=== PATIENT | female | born 1995 | race Caucasian/White ===

== ENCOUNTER → 2016-10-01 | Outpatient (CLI) | payer MEDICAID ==
[~2016-10-01] MED LIST: PREN1TAB63
== END ==
LOC: HPND 14:18
PROVIDERS: ATTEND Family Medicine
DX: Z34.90 Encounter for supervision of normal pregnancy, unspecified, unspecified trimester (principal)
CPT/HCPCS: 76805

== ENCOUNTER → 2016-11-05 | Outpatient (CLI) | payer MEDICAID | LOC: HPND 14:38 | PROVIDERS: ATTEND Family Medicine | DX: O26.842 Uterine size-date discrepancy, second trimester (principal); Z3A.20 20 weeks gestation of pregnancy | CPT/HCPCS: 76816 ==

== ENCOUNTER → 2017-01-14 | Outpatient (CLI) | payer MEDICAID ==
[~2017-01-14] MED LIST changes: +AZIT500T2 PO; +CEPH-460 PO; +MACR100C2 PO
== END ==
LOC: HPND 13:35
PROVIDERS: ATTEND Family Medicine
DX: Z36 Encounter for antenatal screening of mother (principal)
CPT/HCPCS: 76816

== ENCOUNTER 2017-03-11 08:01 | Emergency (ER) | payer MEDICAID ==
[~2017-03-11 08:01] MED LIST changes: -AZIT500T2 PO; -CEPH-460 PO; -MACR100C2 PO
--- NOTE | 2017-03-11 08:52 | PD ---
HPI Travel History International Travel<30 Days: No Contact w/Intl Traveler<30Days: No Known Affected Area: No History of Present Illness HPI 21 yr old at 38 weeks presents with contractions. Accompanied by mom. Reports that her contractions started about 7am this morning. She states that they have been regular and 12-15 min apart. She states that she had intercourse last night. She states that she has normal thin, white vaginal discharge. She denies foul-smelling odor. She smokes 6-7 cigarettes/day. She denies leakage of fluid, vaginal bleeding, dysuria, N/V, SOB, and CP. During her stay in the ED , she states that her contractions improved after she calmed down. [place] [facility] [place] [facility] [place]. History Past Medical History Narrative Medical Scoliosis Anxiety and Depression, currently not on meds, took Zoloft in the past Obstetric History Obstetric History Last was induced VD due to due dates Hx of chlamydia, treated with Azithromycin, but no BRANDY Past Surgical History Surgical History: No Previous Surgery Family History Family History: Negative Social History Alcohol Use: No Tobacco Use: Yes (smokes 6-7 cigarrettes per day) Substance Abuse: No Allergies-Medications (Allergen,Severity, Reaction): Coded Allergies: No Known Allergies (Unverified , 03/05/17) Home Meds Reported Medications Multivit-Min W/Fe-FA ( Vitamins 0.8 mg) 1 Tab Tab 08/18/16 Review of Systems Except as stated in HPI: all other systems reviewed are Neg Physical Exam Narrative GENERAL: Well-nourished, well-developed patient. SKIN: Warm and dry. HEAD: Normocephalic and atraumatic. EYES: No scleral icterus. No injection or drainage. ENT: No nasal drainage noted. Mucous membranes pink. Airway patent. NECK: Supple, trachea midline. No JVD. CARDIOVASCULAR: Regular rate and rhythm without murmurs, gallops, or rubs. RESPIRATORY: Breath sounds equal bilaterally. No accessory muscle use. ABDOMEN/GI: Abdomen soft, non-tender, bowel sounds present, no rebound, no guarding DIGITAL EXAM: 3cm, thick, posterior and high FHT's: Category: 1 Baseline: 130s Reactive: yes Variability: moderate Decels: no EXTREMITIES: No cyanosis or edema. BACK: Nontender without obvious deformity. NEUROLOGICAL: Awake and alert. Motor and sensory grossly within normal limits. Data Data Vital Signs Reviewed: Yes Orders Orders Vital Signs (Adult) .ON ADMISSION (03/11/17 08:49) ^ Labor Status (03/11/17 08:49) ^ Hydration (03/11/17 08:49) Group B Strep: Negative MDM Narrative Course / MDM 21 yr old at 38 weeks presents with false labor 1. IUP category 1, reassuring 2. False labor -Encourage hydration frequently -Tylenol and heating pad for pain -Return to the ED if contractions are 5 min apart for 1 hr or ROM -Continue care with Dr. Barrientos Diagnosis Diagnosis: Primary Impression: False labor at or after 37 completed weeks of gestation Disposition: 01 DISCHARGE HOME Condition: Good Patient Instructions: Early Labor Signs (ED) Lottie Rodriguez MD R1 Mar 11, 2017 08:52
[2017-03-13] MEDS ORDERED: SENN1TAB PO ×2 (09:28)
[2017-03-13] MEDS ORDERED: IBUP-232 PO ×2 (09:28)
[2017-03-15] MEDS ORDERED: BREAST PUMP1 MI1 ×2 (11:15)
== END 2017-03-11 09:20 | disposition home or self-care (01) ==
LOC: HOBED 08:01
DX: O47.1 False labor at or after 37 completed weeks of gestation (principal); Z3A.38 38 weeks gestation of pregnancy
CPT/HCPCS: 59025

== ENCOUNTER 2017-03-11 18:22 | Inpatient (IN) | payer MEDICAID ==
[2017-03-11] VITALS (11 sets, daily range): BP systolic 116–128; BP diastolic 60–61; PULSE 81–119; RESP 20–22; TEMP 98.5–98.7
[~2017-03-11] VITALS: Ht 165.1 cm; Wt 73.0 kg
[~2017-03-11 18:22] MED LIST changes: +DIPHTH/TETANUS/ACEL PERTUSSIS (BOOSTER) 0.5 ML VIAL/PFS IM ONE; +MEASLES, MUMPS, RUBELLA VACCINE 0.5 ML VIAL SQ ONE
--- NOTE | 2017-03-11 19:24 | PD ---
HPI Travel History International Travel<30 Days: No Contact w/Intl Traveler<30Days: No Known Affected Area: No History of Present Illness HPI 21 yr old at 38 weeks presents with contractions. Patient was here early this morning. Reports that she was having contractions every 10-15 min. Cervix was 3-4cm, thick, high and posterior. Patient was discharged from OB triage for false labor. She went to her appointment this afternoon at the [facility] – [place]. She was found to be dilated to 5cm at the clinic there and thus sent over to OB triage for cervical change. Patient reports that contractions are close to 10min apart and are more intense. She denies leakage of fluids, vaginal bleeding , vaginal discharge, N/V, CP, and SOB. History Past Medical History Narrative Medical Scoliosis Anxiety and Depression, currently not on meds, took Zoloft in the past Obstetric History Obstetric History Last was induced VD due to due dates Hx of chlamydia, treated with Azithromycin, but no BRANDY Past Surgical History Surgical History: No Previous Surgery Family History Family History: Negative Social History Alcohol Use: No Tobacco Use: Yes (smokes 6-7 cigarrettes per day ) Substance Abuse: No Allergies-Medications (Allergen,Severity, Reaction): Coded Allergies: No Known Allergies (Unverified , 03/05/17) Home Meds Reported Medications Multivit-Min W/Fe-FA ( Vitamins 0.8 mg) 1 Tab Tab 08/18/16 Review of Systems Except as stated in HPI: all other systems reviewed are Neg Physical Exam Narrative GENERAL: Well-nourished, well-developed patient. SKIN: Warm and dry. HEAD: Normocephalic and atraumatic. EYES: No scleral icterus. No injection or drainage. ENT: No nasal drainage noted. Mucous membranes pink. Airway patent. NECK: Supple, trachea midline. No JVD. CARDIOVASCULAR: Regular rate and rhythm without murmurs, gallops, or rubs. RESPIRATORY: Breath sounds equal bilaterally. No accessory muscle use. ABDOMEN/GI: Abdomen soft, non-tender, bowel sounds present, no rebound, no guarding GENITOURINARY: Cervix: posterior Dilatation: 4-5 Effacement: 50% Station: -3 Presentation: vertex Membranes: intact Uterine Contractions: FHT's: Category: 1 Baseline: 150s Reactive: yes Variability: moderate Decels: no EXTREMITIES: No cyanosis or edema. BACK: Nontender without obvious deformity. NEUROLOGICAL: Awake and alert. Motor and sensory grossly within normal limits. Data Data Vital Signs Reviewed: Yes Orders Orders Vital Signs (Adult) .ON ADMISSION (03/11/17 19:23) ^ Labor Status (03/11/17 19:23) ^ Hydration (03/11/17 19:23) Gc And Chlamydia Pcr (03/11/17 19:23) Group B Strep: Negative MDM Narrative Course / MDM 21 yr old at 38 weeks presents with contractions and possible labor 1. IUP -category 1, reassuring 2. Possible labor -Cervix dilated to 4-5 cm, 50% effacement, station -3 -Will monitor in ED for cervical change 3. GBS negative 4. Hx of chlamydia, no BRANDY -GC & chlamydia PCR pending Lottie Rodriguez MD R1 Mar 11, 2017 19:24
--- NOTE | 2017-03-11 21:00 | PD ---
HPI Travel History International Travel<30 Days: No Contact w/Intl Traveler<30Days: No Known Affected Area: No History of Present Illness HPI Please see note from Dr. Rodriguez for initial H&P. On reassessment, patient reports having more intense contractions and in more pain. Allergies-Medications (Allergen,Severity, Reaction): Coded Allergies: No Known Allergies (Unverified , 03/05/17) Home Meds Reported Medications Multivit-Min W/Fe-FA ( Vitamins 0.8 mg) 1 Tab Tab 08/18/16 Physical Exam Narrative GENITOURINARY: External Genitalia: intact and normal in appearance Cervix: soft, posterior Dilatation: 5 Effacement: 60 Station: -2 Presentation: [-] Membranes: intact Uterine Contractions: q2-3min FHT's: Category:1 Baseline: 140 Reactive: accels present Variability: moderate Decels: none Data Data Vital Signs Reviewed: Yes Orders Orders Vital Signs (Adult) .ON ADMISSION (03/11/17 19:23) ^ Labor Status (03/11/17 19:23) ^ Hydration (03/11/17 19:23) Gc And Chlamydia Pcr (03/11/17 19:23) Group B Strep: Negative Labs Laboratory Tests Test 03/11/17 19:40 MDM Medical Record Reviewed: Yes Plan 21 yr old at 38/0 in active labor. 1. IUP * Cat 1 tracing reassuring. Good contraction pattern q2-3mins. No decels * Admit to L&D for routine labor care * Vertex position based on US from 01/14/2017 2. GBS negative: No abx needed 3. +Chlamydia on labs. No test of cure available. Pt denies hx of chlamydia. * test of cure obtained today, pending dw Dr. Brayan Cabrera,Delia Groves MD, R3 Mar 11, 2017 21:00
[2017-03-11] MEDS ORDERED: LACTATED RINGER'S 1000 ML INJ 1,000 ML IV SCH (21:05)
[2017-03-11] MEDS ORDERED: LACTATED RINGER'S 1000 ML INJ 1,000 ML IV PRN (21:05)
[2017-03-11] MEDS ORDERED: LIDOCAINE HCL 1% 50 ML VIAL I-DERMAL PRN (21:15)
[2017-03-11] MEDS ORDERED: OXYTOCIN 30 UNITS-500ML PREMIX 500 ML IV ONE (21:15)
[2017-03-11] MEDS ORDERED: CITRIC ACID-SODIUM CITRATE LIQ 30 ML UDC PO SCH (21:15)
[2017-03-11] MEDS ORDERED: MINERAL OIL 10 ML VIAL TOPICAL PRN (21:15)
[2017-03-11] MEDS ORDERED: SODIUM CHLORID 0.9% 500 ML INJ 500 ML IV PRN (21:15)
[2017-03-11] MEDS ORDERED: LIDOCAINE HCL 1% 50 ML VIAL INFIL PRN (21:15)
--- NOTE | 2017-03-11 21:18 | HHI.HP ---
History & Physical H&P HPI Travel History International Travel<30 Days: No Contact w/Intl Traveler<30Days: No Known Affected Area: No History of Present Illness HPI 21 yr old at 38 weeks presents with contractions. Patient was here early this morning. Reports that she was having contractions every 10-15 min. Cervix was 3-4cm, thick, high and posterior. Patient was discharged from OB triage for false labor. She went to her appointment this afternoon at the [facility]. She was found to be dilated to 5cm at the clinic there and thus sent over to OB triage for cervical change. Patient reports that contractions are close to 10min apart and are more intense. She denies leakage of fluids, vaginal bleeding , vaginal discharge, N/V, CP, and SOB. History Past Medical History Narrative Medical Scoliosis Anxiety and Depression, currently not on meds, took Zoloft in the past Obstetric History Obstetric History Last was induced VD due to due dates Hx of chlamydia, treated with Azithromycin, but no BRANDY Past Surgical History Surgical History: No Previous Surgery Family History Family History: Negative Social History Alcohol Use: No Tobacco Use: Yes (smokes 6-7 cigarrettes per day ) Substance Abuse: No Allergies-Medications (Allergen,Severity, Reaction): Coded Allergies: No Known Allergies (Unverified , 03/05/17) Home Meds Reported Medications Multivit-Min W/Fe-FA ( Vitamins 0.8 mg) 1 Tab Tab 08/18/16 Review of Systems Except as stated in HPI: all other systems reviewed are Neg Physical Exam Narrative GENERAL: Well-nourished, well-developed patient. SKIN: Warm and dry. HEAD: Normocephalic and atraumatic. EYES: No scleral icterus. No injection or drainage. ENT: No nasal drainage noted. Mucous membranes pink. Airway patent. NECK: Supple, trachea midline. No JVD. CARDIOVASCULAR: Regular rate and rhythm without murmurs, gallops, or rubs. RESPIRATORY: Breath sounds equal bilaterally. No accessory muscle use. ABDOMEN/GI: Abdomen soft, non-tender, bowel sounds present, no rebound, no guarding GENITOURINARY: Cervix: posterior Dilatation: 4-5 Effacement: 50% Station: -3 Presentation: vertex Membranes: intact Uterine Contractions: FHT's: Category: 1 Baseline: 150s Reactive: yes Variability: moderate Decels: no EXTREMITIES: No cyanosis or edema. BACK: Nontender without obvious deformity. NEUROLOGICAL: Awake and alert. Motor and sensory grossly within normal limits. Data Data Vital Signs Reviewed: Yes Orders Orders Vital Signs (Adult) .ON ADMISSION (03/11/17 19:23) ^ Labor Status (03/11/17 19:23) ^ Hydration (03/11/17 19:23) Gc And Chlamydia Pcr (03/11/17 19:23) Group B Strep: Negative MDM Narrative Course / MDM 21 yr old at 38 weeks presents with contractions and possible labor 1. IUP -category 1, reassuring 2. Possible labor -Cervix dilated to 4-5 cm, 50% effacement, station -3 -Will monitor in ED for cervical change REASSESSMENT ON 03/11/17 AT 2044 patient reports having more intense contractions and in more pain. PHYSICAL EXAM GENITOURINARY: External Genitalia: intact and normal in appearance Cervix: soft, posterior Dilatation: 5 Effacement: 60 Station: -2 Presentation: [-] Membranes: intact Uterine Contractions: q2-3min FHT's: Category:1 Baseline: 140 Reactive: accels present Variability: moderate Decels: none Plan 21 yr old at 38/0 in active labo 1. IUP * Cat 1 tracing reassuring. Good contraction pattern q2-3mins. No decels * Admit to L&D for routine labor care * Vertex position based on US from 01/14/2017 2. GBS negative: No abx needed 3. +Chlamydia on labs. No test of cure available. Pt denies hx of chlamydia. * test of cure obtained today, pending dw Dr. Brayan Cabrera,Delia Groves MD, R3 Mar 11, 2017 21:18
[2017-03-11] MEDS ORDERED: SODIUM CHLOR 0.9% 1000 ML INJ 1,000 ML IV PRN (21:25)
[2017-03-11 21:35] LABS: BLOOD, URINE NEG (NEG); COMMENT (UR) CULT NOT INDICATED; CULTURE IF INDICATED CULT NOT INDICATED; GLUCOSE,URINE NEG (NEG); KETONE, URINE 10 mg/dL (NEG); MUCUS URINE FEW /lpf (OCC); NITRITE,URINE NEG (NEG); PH, URINE 6.5 (5.0-8.5); SQUAMOUS EPITHELIAL CELL URINE 1 /hpf (0-5); URINE COLOR LIGHT-YELLOW (YELLW/STRAW)
[2017-03-11] MEDS ORDERED: ACETAMINOPHEN 325 MG TAB PO ONE (21:45)
[2017-03-11 21:56] LABS: AUTOMATED NEUTROPHIL # 10.1 TH/MM3 (1.8-7.7); BASOPHIL % 0.2 % (0.0-2.0); EOSINOPHIL # 0.3 TH/MM3 (0-0.4); HEMATOCRIT 37.1 % (35.0-46.0); HEMO FLAGS DIFF FINAL; LYMPH % 23.7 % (9.0-44.0); LYMPHOCYTE # 3.5 TH/MM3 (1.0-4.8); MEAN CELL VOLUME 90.8 FL (80.0-100.0); MEAN CORPUSCULAR HEMOGLOBIN 31.1 PG (27.0-34.0); MEAN CORPUSCULAR HGB CONC 34.2 % (32.0-36.0); MONO % 5.7 % (0.0-8.0); NEUT % 68.4 % (16.0-70.0); PLATELET COUNT 278 TH/MM3 (150-450); RED BLOOD COUNT 4.08 MIL/MM3 (4.00-5.30); RED CELL DISTRIBUTION WIDTH 13.3 % (11.6-17.2); WHITE BLOOD COUNT 14.8 TH/MM3 (4.0-11.0)
--- NOTE | 2017-03-11 22:52 | PD.LABORPN ---
Subjective Subjective This is a 21-year-old at 38 and 0 weeks' gestational age she is currently in labor. Reports feeling adequate contractions that are quite painful but tolerable. She is getting some relief from her pain medications. She just had a rupture of her membranes without assistance. She is feeling some good movement. She is feeling some increased pelvic pressure. She is excited to see the baby and is hoping for sooner rather than later. Objective Vital Signs Vital Signs Date Time Temp Pulse Resp B/P (MAP) Pulse Ox O2 Delivery O2 Flow Rate FiO2 03/11/17 21:40 88 03/11/17 21:15 98.7 20 03/11/17 21:12 88 116/60 (78) Objective Pelvic Exam: Cervix: soft Dilatation: 7 Effacement:70 Station: -2 Presentation: Vertex Membranes: Ruptured Uterine Contractions: 3-4 minutes FHT's: Category: 1 Baseline: 130 Reactive: Up to 160 Variability: Moderate Decels: none Weeks Gestation: 38 Gest Age Assessed Date: Mar 11, 2017 Gest Age Assessed Time: 22:45 Pt started active labor?: Yes Active labor start date: Mar 11, 2017 Active labor start time: 17:00 Medical induction of labor?: No Artificial rupture of membrane: No Assessment/Plan Problem List: (1) 38 weeks gestation of ICD Codes: Z3A.38 - 38 weeks gestation of (2) Uterine contractions during ICD Codes: O62.2 - Other uterine inertia Assessment and Plan 21 yr old at 38/0 in active labor 1. IUP * Cat 1 tracing reassuring. Good contraction pattern q2-3mins. No decels * Admit to L&D for routine labor care * Continue routine expectant management 2. GBS negative: No abx needed 3. +Chlamydia on labs. No test of cure available. Pt denies hx of chlamydia. * test of cure obtained today, pending wdw Bladimir Benavidez MD, R3 Mar 11, 2017 22:52
[2017-03-11 23:46] LABS: CHLAMYDIA PCR NOT DETECTED (NOT DETECT); NEISSERIA PCR NOT DETECTED (NOT DETECT)
--- NOTE | 2017-03-11 23:58 | PD.OB.DELI ---
Weeks gestation: 38 Gest age assessed date: Mar 11, 2017 Gest age assessed time: 22:45 Pt started active labor?: Yes Active labor start date: Mar 11, 2017 Active labor start time: 17:00 Medical induction of labor?: No Artificial rupture of membrane: No Anesthesia: None Episiotomy: None Vaginal Delivery: Normal Presentation: Occiput anterior Nuchal Cord: None Delayed cord clamping (45 sec): Yes : Female Delivery date: Mar 11, 2017 Delivery time: 11:31 One Minute : 8 Five Minute : 9 Weight: 3160 Placenta: Spontaneous delivery, Intact, 3 vessel cord Additional Information Baby was a rapid vaginal delivery. No tears noted following delivery. Bladimir Barrientos MD, R3 Mar 11, 2017 23:58
[2017-03-12] MEDS ORDERED: ZOLPIDEM TARTRATE 5 MG TAB PO PRN
[2017-03-12] MEDS ORDERED: ONDANSETRON ODT 4 MG TAB PO PRN
[2017-03-12] MEDS ORDERED: IBUPROFEN 600 MG TAB PO PRN
[2017-03-12] MEDS ORDERED: OXYTOCIN 30 UNITS-500ML PREMIX 500 ML IV SCH
[2017-03-12] MEDS ORDERED: WITCH HAZEL 50%/GLYCERIN 12.5% 40 PAD JAR TOPICAL PRN
[2017-03-12] MEDS ORDERED: DOCUSATE SODIUM 50 MG/SENNA 8.6 MG TAB PO PRN
[2017-03-12] MEDS ORDERED: ALUMINUM/MAGNESIUM/SIMETH 30 ML CUP PO PRN
[2017-03-12] MEDS ORDERED: ACETAMINOPHEN 325 MG TAB PO PRN
[2017-03-12] MEDS ORDERED: SODIUM CHLORIDE 0.9% FLUSH 10 ML FLUSH IV FLUSH PRN
[2017-03-12] MEDS ORDERED: BENZOCAINE 20% TOPICAL SPRAY 60 ML CAN TOPICAL PRN
[2017-03-12 00:22] VITALS: BP 111/64; PULSE 71
[2017-03-12 00:30] VITALS: RESP 18
[2017-03-12 05:59] LABS: AUTOMATED NEUTROPHIL # 15.3 TH/MM3 (1.8-7.7); BASOPHIL % 0.2 % (0.0-2.0); EOSINOPHIL # 0.1 TH/MM3 (0-0.4); EOSINOPHIL % 0.3 % (0.0-4.0); HEMATOCRIT 34.2 % (35.0-46.0); HEMO FLAGS DIFF FINAL; LYMPH % 13.6 % (9.0-44.0); LYMPHOCYTE # 2.6 TH/MM3 (1.0-4.8); MEAN CELL VOLUME 90.9 FL (80.0-100.0); MEAN CORPUSCULAR HEMOGLOBIN 31.5 PG (27.0-34.0); MEAN CORPUSCULAR HGB CONC 34.6 % (32.0-36.0); MONO % 5.1 % (0.0-8.0); NEUT % 80.8 % (16.0-70.0); PLATELET COUNT 255 TH/MM3 (150-450); RED BLOOD COUNT 3.76 MIL/MM3 (4.00-5.30); RED CELL DISTRIBUTION WIDTH 13.2 % (11.6-17.2); WHITE BLOOD COUNT 18.9 TH/MM3 (4.0-11.0)
--- NOTE | 2017-03-12 07:47 | HHI.OB ---
Subjective Post Day: 1 Remarks day # 1. AFVSS overnight. Pain controlled. Decreased lochia. Denies dysuria. No breast tenderness. She is feeding the baby via breast. Appetite good. No nausea or vomiting. Positive flatus. Negative bowel movement. Ambulating well. Denies calf pain, shortness of breath, or cough. Otherwise, she is doing well this morning and has no other complaints. Objective Vitals/I&O Vital Signs Date Time Temp Pulse Resp B/P (MAP) Pulse Ox O2 Delivery O2 Flow Rate FiO2 03/12/17 00:30 18 03/12/17 00:22 71 03/12/17 00:22 111/64 (80) 03/11/17 23:57 83 03/11/17 23:46 88 128/61 (83) 03/11/17 23:45 98.5 20 03/11/17 23:30 119 03/11/17 23:10 81 03/11/17 22:55 85 03/11/17 22:45 22 03/11/17 22:20 97 03/11/17 21:40 88 03/11/17 21:15 98.7 20 03/11/17 21:12 88 116/60 (78) Objective Remarks GENERAL: Well-nourished, well-developed patient. CARDIOVASCULAR: Regular rate and rhythm without murmurs, gallops, or rubs. RESPIRATORY: Breath sounds equal bilaterally. No accessory muscle use. ABDOMEN/GI: Abdomen soft, non-tender. Fundus: Firm, non-tender at umbilicus. GENITOURINARY: Light to moderate bleeding. EXTREMITIES: No cyanosis or edema, non-tender, without signs of DVT. Medications and IVs Current Medications Medications (Trade) Dose Ordered Sig/Amrik Route Start Time Stop Time Status Last Admin Lactated Ringer's 1,000 ml @ 125 mls/hr Q8H IV 03/11/17 21:05 03/11/17 22:30 Lactated Ringer's 1,000 ml @ 3,000 mls/hr Q20M PRN IV 03/11/17 21:05 Sodium Chloride 500 ml @ 1,000 mls/hr ONCE PRN IV 03/11/17 21:15 03/12/17 21:14 Sodium Chloride 1,000 ml @ 100 mls/hr Q10H PRN IV 03/11/17 21:25 (Xylocaine 1% Inj (50 ml)) 0.1 ml UNSCH X1 PRN I-DERMAL 03/11/17 21:15 03/14/17 21:14 (Bicitra Liq) 30 ml ATTENDING AMBULATORY CARE PO 03/11/17 21:15 03/15/17 21:14 (fentaNYL INJ) 50 mcg Q1H PRN IV PUSH 03/11/17 21:15 (fentaNYL INJ) 100 mcg Q1H PRN IV PUSH 03/11/17 21:15 03/11/17 22:30 (Xylocaine 1% Inj (50 ml)) 10 ml UNSCH X1 PRN INFIL 03/11/17 21:15 03/13/17 21:14 (Muri-Lube Oil) 10 ml UNSCH PRN TOPICAL 03/11/17 21:15 (NS Flush) 2 ml BID IV FLUSH 03/12/17 09:00 (NS Flush) 2 ml UNSCH PRN IV FLUSH 03/12/17 00:00 (Tylenol) 650 mg Q4H PRN PO 03/12/17 00:00 (Motrin) 600 mg Q6H PRN PO 03/12/17 00:00 03/12/17 02:43 (Americaine 20% Top Spr) 1 spray Q4H PRN TOPICAL 03/12/17 00:00 (Tucks Pads) 1 applic QID PRN TOPICAL 03/12/17 00:00 (Sudha-Colace) 2 tab Q12H PRN PO 03/12/17 00:00 (Ambien) 5 mg HS PRN PO 03/12/17 00:00 (Mag-Al Plus Susp Liq) 15 ml Q8H PRN PO 03/12/17 00:00 (Zofran Odt) 4 mg Q6H PRN PO 03/12/17 00:00 (Flu (Quadrivalent) Vaccine Inj) 0.5 ml ONCE ONCE IM 03/12/17 09:00 03/12/17 09:01 Assessment/Plan Problem List: (1) 38 weeks gestation of ICD Codes: Z3A.38 - 38 weeks gestation of (2) Uterine contractions during ICD Codes: O62.2 - Other uterine inertia (3) care following vaginal delivery ICD Codes: Z39.2 - Encounter for routine follow-up Assessment and Plan 21 y/o female who is PPD# 1 s/p . -Continue routine care. -Percocet and Motrin PRN pain. -Encouraged OOB. Advised pelvic rest for 6 wks. -Will need a f/u appt. within 6 wks. -Re: ctrl, she is undecided at this time. -D/c in 1-2 more days. wdw OB attending Discharge Planning Plan for discharge tomorrow Bladimir Barrientos MD, R3 Mar 12, 2017 07:47
[2017-03-12 08:30] VITALS: BP 113/67; PULSE 79; RESP 16; TEMP 98
[2017-03-12] MEDS ORDERED: SODIUM CHLORIDE 0.9% FLUSH 10 ML FLUSH IV FLUSH SCH (09:00)
[2017-03-12] MEDS ORDERED: INFLUENZA VIRUS VACCINE (QUADRIVALENT) 0.5 ML SYR IM ONE (09:00)
[2017-03-12 20:00] VITALS: BP 106/64; PULSE 67; RESP 16; TEMP 97.8
[2017-03-13 07:40] VITALS: BP 107/70; PULSE 66; RESP 18; TEMP 97.7
--- NOTE | 2017-03-13 09:27 | HHI.OB ---
Subjective Post Day: 2 Remarks day # 2. AFVSS overnight. Pain controlled. Decreased lochia. Denies dysuria. She is feeding the baby via breast. Appetite good. No nausea or vomiting. Positive flatus. Positive bowel movement. Ambulating well. Denies calf pain, shortness of breath, or cough. Otherwise, she is doing well this morning and has no other complaints. Objective Vitals/I&O Vital Signs Date Time Temp Pulse Resp B/P (MAP) Pulse Ox O2 Delivery O2 Flow Rate FiO2 03/13/17 07:40 97.7 66 18 107/70 (82) 03/12/17 20:00 97.8 67 16 106/64 (78) Objective Remarks GENERAL: Well-nourished, well-developed patient. CARDIOVASCULAR: Regular rate and rhythm without murmurs, gallops, or rubs. RESPIRATORY: Breath sounds equal bilaterally. No accessory muscle use. ABDOMEN/GI: Abdomen soft, non-tender. Fundus: Firm, non-tender below umbilicus. GENITOURINARY: Light to moderate bleeding. EXTREMITIES: No cyanosis or edema, non-tender, without signs of DVT. Medications and IVs Current Medications Medications (Trade) Dose Ordered Sig/Amrik Route Start Time Stop Time Status Last Admin Lactated Ringer's 1,000 ml @ 125 mls/hr Q8H IV 03/11/17 21:05 03/11/17 22:30 Lactated Ringer's 1,000 ml @ 3,000 mls/hr Q20M PRN IV 03/11/17 21:05 Sodium Chloride 1,000 ml @ 100 mls/hr Q10H PRN IV 03/11/17 21:25 (Xylocaine 1% Inj (50 ml)) 0.1 ml UNSCH X1 PRN I-DERMAL 03/11/17 21:15 03/14/17 21:14 (Bicitra Liq) 30 ml GROUP COUNSELOR PO 03/11/17 21:15 03/15/17 21:14 (fentaNYL INJ) 50 mcg Q1H PRN IV PUSH 03/11/17 21:15 (fentaNYL INJ) 100 mcg Q1H PRN IV PUSH 03/11/17 21:15 03/11/17 22:30 (Xylocaine 1% Inj (50 ml)) 10 ml UNSCH X1 PRN INFIL 03/11/17 21:15 03/13/17 21:14 (Muri-Lube Oil) 10 ml UNSCH PRN TOPICAL 03/11/17 21:15 (NS Flush) 2 ml BID IV FLUSH 03/12/17 09:00 (NS Flush) 2 ml UNSCH PRN IV FLUSH 03/12/17 00:00 (Tylenol) 650 mg Q4H PRN PO 03/12/17 00:00 (Motrin) 600 mg Q6H PRN PO 03/12/17 00:00 03/12/17 02:43 (Americaine 20% Top Spr) 1 spray Q4H PRN TOPICAL 03/12/17 00:00 (Tucks Pads) 1 applic QID PRN TOPICAL 03/12/17 00:00 03/13/17 08:27 (Sudha-Colace) 2 tab Q12H PRN PO 03/12/17 00:00 (Ambien) 5 mg HS PRN PO 03/12/17 00:00 (Mag-Al Plus Susp Liq) 15 ml Q8H PRN PO 03/12/17 00:00 (Zofran Odt) 4 mg Q6H PRN PO 03/12/17 00:00 Assessment/Plan Problem List: (1) 38 weeks gestation of ICD Codes: Z3A.38 - 38 weeks gestation of (2) Uterine contractions during ICD Codes: O62.2 - Other uterine inertia (3) care following vaginal delivery ICD Codes: Z39.2 - Encounter for routine follow-up Assessment and Plan 21 y/o female who is PPD# 2 s/p . -Continue routine care. -Percocet and Motrin PRN pain. -Encouraged OOB. Advised pelvic rest for 6 wks. -Will need a f/u appt. within 6 wks. -Re: ctrl, she is undecided at this time but is considering oral contraceptives for at least the first 3-[address] Martinez Discharge Planning D/c home today Beverley Wright MD R2 Mar 13, 2017 09:27
[2017-03-13] MEDS ORDERED: SENN1TAB PO (09:28)
[2017-03-13] MEDS ORDERED: IBUP-232 PO (09:28)
--- NOTE | 2017-03-13 09:29 | HHI.DCPOC ---
Discharge Care Plan Diagnosis: (1) 38 weeks gestation of (2) care following vaginal delivery Report Symptoms to Your Doctor -Temperature above 100.5 degrees -Redness, of incision or excessive or foul smelling drainage -Unusual pain or calf pain -Increased vaginal bleeding -Painful or difficulty urinating -Feelings of extreme sadness or anxiety after 2 weeks Goals to Promote Your Health * To prevent worsening of your condition and complications * To maintain your health at the optimal level Directions to Meet Your Goals Take your medications as prescribed Follow your dietary instruction Follow activity as directed Ensure plenty of rest for recovery Drink fluids for hydration Keep your appointments as scheduled Take your immunizations and boosters as scheduled If your symptoms worsen call your PCP, if no PCP go to Urgent Care Center or Emergency Room Smoking is Dangerous to Your Health. Avoid second hand smoke Call the 24-hour crisis hotline for domestic abuse at Beverley Wright MD R2 Mar 13, 2017 09:29
[2017-03-15] MEDS ORDERED: BREAST PUMP1 MI1 (11:15)
== END 2017-03-13 11:15 | disposition home or self-care (01) | DRG 775 ==
LOC: HOBED 18:22 → H2EA 21:09 → H1EA 03-12 01:35
PROVIDERS: ADMIT Obstetrics & Gynecology; ATTEND Obstetrics & Gynecology
PROC: 10E0XZZ Delivery of Products of Conception, External Approach (ICD-10-PCS; principal; 2017-03-11)
DX: O99.334 Smoking (tobacco) complicating childbirth (principal); Z37.0 Single live birth; Z3A.38 38 weeks gestation of pregnancy
CPT/HCPCS: 80307; 81001; 85025; 86900; 86901; 87491; 87591; 90707; J3010; J7120

== ENCOUNTER 2017-05-28 11:01 | Emergency (ER) | payer MEDICAID ==
[~2017-05-28] VITALS: Ht 162.6 cm; Wt 61.4 kg
[~2017-05-28 11:01] MED LIST changes: -DIPHTH/TETANUS/ACEL PERTUSSIS (BOOSTER) 0.5 ML VIAL/PFS IM ONE; +ESCI10TA PO; -MEASLES, MUMPS, RUBELLA VACCINE 0.5 ML VIAL SQ ONE; -PREN1TAB63; +SPRI28TA PO
[2017-05-28 11:24] VITALS: BP 142/73; PULSE 95; RESP 15; TEMP 98.7; O2SAT 100
[2017-05-28 12:24] LABS: AUTOMATED NEUTROPHIL # 5.2 TH/MM3 (1.8-7.7); BASOPHIL # 0.1 TH/MM3 (0-0.2); BASOPHIL % 0.7 % (0.0-2.0); EOSINOPHIL # 0.2 TH/MM3 (0-0.4); EOSINOPHIL % 2.1 % (0.0-4.0); HEMATOCRIT 40.5 % (35.0-46.0); HEMOGLOBIN 13.6 GM/DL (11.6-15.3); LYMPH % 25.1 % (9.0-44.0); MEAN CELL VOLUME 88.2 FL (80.0-100.0); MEAN CORPUSCULAR HEMOGLOBIN 29.7 PG (27.0-34.0); MEAN CORPUSCULAR HGB CONC 33.6 % (32.0-36.0); MEAN PLATELET VOLUME 7.2 FL (7.0-11.0); MONO % 4.6 % (0.0-8.0); MONOCYTE # 0.4 TH/MM3 (0-0.9); NEUT % 67.5 % (16.0-70.0); PLATELET COUNT 310 TH/MM3 (150-450); RED BLOOD COUNT 4.59 MIL/MM3 (4.00-5.30); RED CELL DISTRIBUTION WIDTH 11.8 % (11.6-17.2); WHITE BLOOD COUNT 7.9 TH/MM3 (4.0-11.0)
--- NOTE | 2017-05-28 12:31 | PD ---
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 She states she is concerned because she had unprotected sex 2 weeks for for her control and she didn't have a test before she started that she is concerned she could be having a miscarriage. She denies any pain, fever or other concurrent complaints. She states she was told she had gonorrhea but then her doctor called her back and told her that was an error so she has not had an STD before. Quality is bright red. Severity is improving per patient but is intermittent in nature. PFSH Past Medical History Medical History: Denies Significant Hx Tetanus Vaccination: > 5 Years Influenza Vaccination: No ?: Unknown LMP: end of march Para: 1 Social History Alcohol Use: No Tobacco Use: Yes (smokes 6-7 cigarrettes per day ) Allergies-Medications (Allergen,Severity, Reaction): Coded Allergies: No Known Allergies (Verified Adverse Reaction, Unknown, 05/28/17) Reported Meds & Prescriptions Reported Meds & Active Scripts Active Sprintec 28 (Norgestimate-Ethinyl Estradiol) 0.25-35 mg-Mcg Tab 1 Tab PO DAILY Review of Systems Except as stated in HPI: all other systems reviewed are Neg Physical Exam Narrative GENERAL: Well-nourished, well-developed patient. SKIN: Warm and dry. HEAD: Normocephalic and atraumatic. EYES: No injection or drainage. ENT: No nasal drainage noted. NECK: Supple, trachea midline. CARDIOVASCULAR: Regular rate and rhythm RESPIRATORY: no increased effort. No accessory muscle use. GASTROINTESTINAL: Abdomen soft, non-tender, nondistended. EXTREMITIES: No edema. NEUROLOGICAL: Awake and alert. Motor and sensory grossly within normal limits. Normal speech. GENITOURINARY: Normal external genitalia without lesions or erythema. Vaginal vault with small amount of blood. Cervical os was closed with small blood drainage. Data Data Last Documented VS Vital Signs Date Time Temp Pulse Resp B/P (MAP) Pulse Ox O2 Delivery O2 Flow Rate FiO2 05/28/17 11:24 98.7 95 15 142/73 (96) 100 Orders Orders Complete Blood Count With Diff (05/28/17 11:35) Beta Hcg (Quant/Titer) (05/28/17 11:35) Iv Access Insert/Monitor (05/28/17 11:35) Complete Rh (05/28/17 11:35) Ed Urine Pregnancytest Poc (05/28/17 11:52) Ed Discharge Order (05/28/17 12:59) Labs Laboratory Tests Test 05/28/17 12:14 White Blood Count 7.9 TH/MM3 Red Blood Count 4.59 MIL/MM3 Hemoglobin 13.6 GM/DL Hematocrit 40.5 % Mean Corpuscular Volume 88.2 FL Mean Corpuscular Hemoglobin 29.7 PG Mean Corpuscular Hemoglobin Concent 33.6 % Red Cell Distribution Width 11.8 % Platelet Count 310 TH/MM3 Mean Platelet Volume 7.2 FL Neutrophils (%) (Auto) 67.5 % Lymphocytes (%) (Auto) 25.1 % Monocytes (%) (Auto) 4.6 % Eosinophils (%) (Auto) 2.1 % Basophils (%) (Auto) 0.7 % Neutrophils # (Auto) 5.2 TH/MM3 Lymphocytes # (Auto) 2.0 TH/MM3 Monocytes # (Auto) 0.4 TH/MM3 Eosinophils # (Auto) 0.2 TH/MM3 Basophils # (Auto) 0.1 TH/MM3 CBC Comment DIFF FINAL Differential Comment Human Chorionic Gonadotropin, Quant LESS THAN 1 MIU/ML MDM Medical Decision Making Medical Screen Exam Complete: Yes Emergency Medical Condition: Yes Medical Record Reviewed: Yes (pmh confirmed) Interpretation(s) CBC & BMP Diagram 05/28/17 12:14 beta is negative Differential Diagnosis Menses, , ectopic, anemia Narrative Course Will check CBC and beta and reevaluate labs with normal hgb, beta is negative, only small bleeding on exam, Patient denies any new complaints and states that they are feeling better. Patient happy with care, all questions answered. Patient knows that follow up is incumbent on them and to return to the emergency room immediately if new or worsening symptoms develop. Patient given strict return precautions, vitals reviewed and are normal, agrees to further workup as an outpatient. 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
[2017-05-28 13:30] VITALS: BP 119/78
[2017-06-02] MEDS ORDERED: FLUO20CA12 PO (14:39)
[2017-06-02] MEDS ORDERED: SPRI28TA PO (14:55)
== END 2017-05-28 13:32 | disposition home or self-care (01) ==
LOC: PHED 11:01
DX: N93.9 Abnormal uterine and vaginal bleeding, unspecified (principal); Z72.0 Tobacco use
CPT/HCPCS: 84702; 84703; 85025; 86901; 99283